=== PATIENT | female | born 1980 | race Caucasian/White ===

== ENCOUNTER 2020-12-24 09:27 | Outpatient (REF) | payer BC, SELFPAY ==
[2020-12-24 11:25] LABS: MANUAL DIFF FLAG NO
[2020-12-24 11:30] LABS: Appearance Urine HAZY; Color Urine YELLOW; Glucose Urine UA NEG (NEG); Leukocyte Esterase Urine NEG (NEG); Nitrite Urine NEG (NEG); PH 6.5 (5.0-8.0); Urine Blood NEG (NEG); Urine Ketones NEG (NEG); Urine Protein TRACE MG/DL (NEG-TRACE)
[2020-12-24 11:37] LABS: Basophils Absolute Auto 0.1 X10*3/uL (0.0-0.2); Basophils Percent Auto 0.5 % (0-2); Eosinophils Absolute Auto 0.2 X10*3/uL (0.0-0.4); Eosinophils Percent Auto 1.6 % (0-4); Hematocrit 42.3 % (37-47); Hemoglobin 14.5 g/dl (12.0-16.0); Imm Gran Abs Auto 0.04 X10*3/uL (0.00-0.03); Imm Gran Pct Auto 0.4 % (0.0-0.4); Lymphocytes Absolute Auto 3.5 X10*3/uL (1.2-4.9); Mean Corpuscular HGB Conc 34.3 g/dl (31.0-35.0); Mean Corpuscular Hemoglobin 29.1 pg (27.0-33.0); Mean Corpuscular Volume 84.9 fL (80-98); Mean Platelet Volume 9.6 fL (9.4-12.3); Monocytes Absolute Auto 0.9 X10*3/uL (0.1-1.2); Monocytes Percent Auto 8.1 % (2-11); Neutrophils Percent Auto 56.4 % (45-73); Platelet Count 349 X10*3/uL (160-400); Red Blood Count 4.98 X10*6/uL (4.20-5.50); Red Cell Distribution Width 13.2 % (11.0-16.0); White Blood Count 10.5 X10*3/uL (4.8-10.8)
[2020-12-24 11:49] LABS: Alanine Aminotransferase 27 U/L (0-31); Albumin Level 4.3 g/dL (3.5-5.0); Alkaline Phosphatase 93 U/L (39-117); Anion Gap 15 (12-20); Aspartate Amino Transferase 31 U/L (5-31); Bilirubin Total 0.7 mg/dL (0.0-1.0); Blood Urea Nitrogen 12 mg/dL (9-16); Calcium 10.3 mg/dL (8.4-10.2); Carbon Dioxide 30 mmol/L (22-29); Chloride 101 mmol/L (96-108); Cholesterol 174 mg/dL; Estimated Glomerular Filt Rate > 60; Glucose Fasting 77 mg/dL (60-99); HDL Cholesterol 33 mg/dL; LDL Cholesterol Calculated 109 mg/dl; Potassium 4.5 mmol/L (3.3-5.1); Sodium 141 mmol/L (135-145); Total Protein 7.6 g/dL (6.5-8.0); Triglycerides 164 mg/dL
[2020-12-24 12:23] LABS: Thyroid Stimulating Hormone 2.62 uIU/mL (0.32-4.0); Vitamin D 25-OH Total 28.9 ng/mL (>30)
== END 2020-12-24 09:28 | disposition home or self-care (01) ==
LOC: HO.HMGCLDS 09:27
PROVIDERS: PCP Internal Medicine; Visit Provider Internal Medicine
DX: I10 Essential (primary) hypertension (principal); E66.01 Morbid (severe) obesity due to excess calories
CPT/HCPCS: 36415; 80053; 80061; 81003; 82306; 84443; 85025

== ENCOUNTER → 2022-01-19 14:30 | Outpatient (BNVA) | payer BC, SELFPAY | PROVIDERS: PCP Internal Medicine; Visit Provider Internal Medicine Cardiovascular Disease | DX: R07.89 Other chest pain (principal); I10 Essential (primary) hypertension; R00.0 Tachycardia, unspecified; E66.01 Morbid (severe) obesity due to excess calories; Z68.42 Body mass index [BMI] 45.0-49.9, adult | CPT/HCPCS: 93005 ==

== ENCOUNTER → 2022-02-17 10:22 | Outpatient (REF) | payer BC, SELFPAY ==
--- NOTE | 2022-02-17 10:25 | CA_ITS ---
Acquisition Time: 2022-02-17 10:36:14 Total Exercise Time: 00:06:30 Test Indications: CP TACHYCARDIA Medications: SEE CHART Protocol: YURIY Max HR: 169 BPM 94% of Pred: 179 BPM Max BP: 142/080 mmHG Max Work Load: 7.7 METS Exercise stress test with exercise 6 min 30 sec of Yuriy protocol, achieving 94% MPHR, 7.7 METs, with mild to moderate shortness of breath, with a mild discomfort between her shoulder blades at baseline which became a little sharper with the exercise, without arrythmia, with normotensive response to exercise, without EKG changes meeting criteria for ischemia. In recovery her breathing normalized and back discomfort went back to baseline. Test reviewed with Dr Alejo Referred By: Jorge Yepez Overread By: BASIA TORREZ
== END ==
LOC: HO.CARD 10:22
PROVIDERS: Visit Provider Internal Medicine Cardiovascular Disease
DX: R07.89 Other chest pain (principal)
CPT/HCPCS: 93017

== ENCOUNTER 2023-10-30 08:42 | Outpatient (REF) | payer BC, SELFPAY ==
--- NOTE | ~2023-10-30 | XR_ITS ---
EXAMINATION: XR HAND, RIGHT XR HAND, LEFT CLINICAL INFORMATION: Bilateral hand pain. COMPARISON: None. TECHNIQUE: PA, oblique, and lateral views of the right and left hand. FINDINGS: Right hand: No fracture or dislocation. Normal carpal alignment. No significant joint space narrowing or marginal osteophytes. No osseous erosion. No periarticular osteopenia. No abnormal soft tissue calcification. Left hand: No fracture or dislocation. Normal carpal alignment. No significant joint space narrowing or marginal osteophytes. No osseous erosion. No periarticular osteopenia. No abnormal soft tissue calcification. XR/XR hand RT min 3V IMPRESSION: RIGHT HAND: Unremarkable examination. LEFT HAND: Unremarkable examination. Electronically signed by: Kuldeep Tracey MD 11/19/2023 08:34 PM EDT
--- NOTE | ~2023-10-30 | XR_ITS ---
EXAMINATION: XR HAND, RIGHT XR HAND, LEFT CLINICAL INFORMATION: Bilateral hand pain. COMPARISON: None. TECHNIQUE: PA, oblique, and lateral views of the right and left hand. FINDINGS: Right hand: No fracture or dislocation. Normal carpal alignment. No significant joint space narrowing or marginal osteophytes. No osseous erosion. No periarticular osteopenia. No abnormal soft tissue calcification. Left hand: No fracture or dislocation. Normal carpal alignment. No significant joint space narrowing or marginal osteophytes. No osseous erosion. No periarticular osteopenia. No abnormal soft tissue calcification. XR/XR hand LT min 3V IMPRESSION: RIGHT HAND: Unremarkable examination. LEFT HAND: Unremarkable examination. Electronically signed by: Kuldeep Tracey MD 11/19/2023 08:34 PM EDT
[2023-10-30 10:24] LABS: MANUAL DIFF FLAG NO
[2023-10-30 10:40] LABS: Basophils Absolute Auto 0.1 X10*3/uL (0.0-0.2); Basophils Percent Auto 0.7 % (0-2); Eosinophils Absolute Auto 0.2 X10*3/uL (0.0-0.4); Eosinophils Percent Auto 2.5 % (0-4); Hematocrit 42.1 % (37.0-47.0); Hemoglobin 14.5 g/dl (12.0-16.0); Imm Gran Abs Auto 0.05 X10*3/uL (0.00-0.03); Imm Gran Pct Auto 0.5 % (0.0-0.4); Lymphocytes Absolute Auto 3.1 X10*3/uL (1.2-4.9); Lymphocytes Percent Auto 33.5 % (20-40); Mean Corpuscular HGB Conc 34.4 g/dl (31.0-35.0); Mean Corpuscular Hemoglobin 29.6 pg (27.0-33.0); Mean Corpuscular Volume 85.9 fL (80.0-98.0); Mean Platelet Volume 9.4 fL (9.4-12.3); Monocytes Absolute Auto 0.5 X10*3/uL (0.1-1.2); Monocytes Percent Auto 5.2 % (2-11); Neutrophils Absolute Auto 5.4 x10*3/uL (2.0-8.3); Neutrophils Percent Auto 57.6 % (45-73); Platelet Count 307 X10*3/uL (160-400); Red Cell Distribution Width 12.9 % (11.0-16.0); White Blood Count 9.4 X10*3/uL (4.8-10.8)
[2023-10-30 11:03] LABS: Rheumatoid Factor < 13.0 IU/mL (<15.0)
[2023-10-30 11:07] LABS: Alanine Aminotransferase 37 U/L (0-31); Albumin Level 4.1 g/dL (3.5-5.0); Alkaline Phosphatase 108 U/L (39-117); Anion Gap 15 (12-20); Aspartate Amino Transferase 61 U/L (5-31); Bilirubin Total 0.9 mg/dL (0.0-1.0); Blood Urea Nitrogen 9 mg/dL (9-16); C Reactive Protein 1.25 mg/dL (< or = 0.50); Calcium 9.6 mg/dL (8.4-10.2); Carbon Dioxide 32 mmol/L (22-29); Chloride 98 mmol/L (96-108); Cholesterol 226 mg/dL (<200); Estimated Glomerular Filt Rate > 60; Glucose Fasting 147 mg/dL (60-99); HDL Cholesterol 35 mg/dL (>40); LDL Cholesterol Calculated 151 mg/dL (<100); Potassium 3.7 mmol/L (3.3-5.1); Sodium 141 mmol/L (135-145); Total Protein 7.7 g/dL (6.5-8.0); Triglycerides 204 mg/dL (<150)
[2023-10-30 11:25] LABS: Thyroid Stimulating Hormone 1.89 uIU/mL (0.32-4.0); Vitamin D 25-OH Total 39.5 ng/mL (>30)
[2023-10-30 11:34] LABS: Erythrocyte Sedimentation Rate 26 MM/HR (0-20)
== END 2023-10-30 08:43 | disposition home or self-care (01) ==
LOC: HO.HMGCX 08:42
PROVIDERS: PCP Internal Medicine; Visit Provider Internal Medicine
DX: M25.541 Pain in joints of right hand (principal); M25.542 Pain in joints of left hand; I10 Essential (primary) hypertension; E66.01 Morbid (severe) obesity due to excess calories; Z00.00 Encounter for general adult medical examination without abnormal findings
CPT/HCPCS: 36415; 73130; 80053; 80061; 82306; 84443; 85025; 85652; 86140; 86431

== ENCOUNTER 2024-01-29 07:38 | Outpatient (REF) | payer BC, SELFPAY ==
[2024-01-29 09:58] LABS: MANUAL DIFF FLAG NO
[2024-01-29 10:05] LABS: Basophils Absolute Auto 0.1 X10*3/uL (0.0-0.2); Basophils Percent Auto 0.6 % (0-2); Eosinophils Absolute Auto 0.3 X10*3/uL (0.0-0.4); Eosinophils Percent Auto 2.6 % (0-4); Hematocrit 40.8 % (37.0-47.0); Hemoglobin 13.9 g/dl (12.0-16.0); Imm Gran Abs Auto 0.05 X10*3/uL (0.00-0.03); Imm Gran Pct Auto 0.5 % (0.0-0.4); Lymphocytes Absolute Auto 3.3 X10*3/uL (1.2-4.9); Lymphocytes Percent Auto 31.4 % (20-40); Mean Corpuscular HGB Conc 34.1 g/dl (31.0-35.0); Mean Corpuscular Hemoglobin 29.1 pg (27.0-33.0); Mean Corpuscular Volume 85.5 fL (80.0-98.0); Mean Platelet Volume 9.6 fL (9.4-12.3); Monocytes Absolute Auto 0.6 X10*3/uL (0.1-1.2); Monocytes Percent Auto 5.4 % (2-11); Neutrophils Absolute Auto 6.3 x10*3/uL (2.0-8.3); Neutrophils Percent Auto 59.5 % (45-73); Platelet Count 297 X10*3/uL (160-400); Red Blood Count 4.77 X10*6/uL (4.20-5.50); Red Cell Distribution Width 12.6 % (11.0-16.0); White Blood Count 10.5 X10*3/uL (4.8-10.8)
[2024-01-29 10:30] LABS: Estimated Average Glucose 146 mg/dL; Hemoglobin A1C 173.7372 umol/L; Hemoglobin A1c % 6.7 % (<6.0)
[2024-01-29 10:32] LABS: Alanine Aminotransferase 47 U/L (0-31); Alkaline Phosphatase 121 U/L (39-117); Anion Gap 15 (12-20); Aspartate Amino Transferase 80 U/L (5-31); Blood Urea Nitrogen 12 mg/dL (9-16); Calcium 9.6 mg/dL (8.4-10.2); Carbon Dioxide 29 mmol/L (22-29); Chloride 96 mmol/L (96-108); Cholesterol 145 mg/dL (<200); Estimated Glomerular Filt Rate > 60; Glucose Fasting 147 mg/dL (60-99); HDL Cholesterol 30 mg/dL (>40); LDL Cholesterol Calculated 79 mg/dL (<100); Potassium 3.3 mmol/L (3.3-5.1); Sodium 137 mmol/L (135-145); Total Protein 7.5 g/dL (6.5-8.0); Triglycerides 183 mg/dL (<150)
[2024-01-29 10:35] LABS: Appearance Urine Cloudy; Color Urine Dark Yellow; Glucose Urine UA Negative (Negative); Leukocyte Esterase Urine Small (1+) (Negative); Nitrite Urine Negative (Negative); PH 8.5 (5.0-9.0); UMIC TRIGGER UA YES; Urine Blood Negative (Negative); Urine Ketones Trace mg/dL (Negative); Urine Protein 30 (1+) mg/dL (Neg-Trace)
[2024-01-29 10:54] LABS: Creatinine Urine 306.36 mg/dL; Microalbum/Creatinine Ratio Ur 29.7 ug/mg cr (<30)
[2024-01-29 10:55] LABS: Bacteria Urine 4+ (None Seen); RBC Urine 0-2 /HPF (0-2); Squamous Epithelial Cell Urine >20 /HPF (0-2)
== END 2024-01-29 07:39 | disposition home or self-care (01) ==
LOC: HO.HMGCLDS 07:38
PROVIDERS: PCP Internal Medicine; Visit Provider Internal Medicine
DX: E78.00 Pure hypercholesterolemia, unspecified (principal); R73.01 Impaired fasting glucose; I10 Essential (primary) hypertension; E66.01 Morbid (severe) obesity due to excess calories
CPT/HCPCS: 36415; 80053; 80061; 81001; 82043; 82570; 83036; 85025

== ENCOUNTER 2024-05-10 10:14 | Outpatient (REF) | payer BC, SELFPAY ==
[2024-05-10 14:08] LABS: Estimated Average Glucose 137 mg/dL; Hemoglobin A1c % 6.4 % (<6.0)
[2024-05-10 14:12] LABS: Alanine Aminotransferase 40 U/L (0-31); Albumin Level 3.9 g/dL (3.5-5.0); Alkaline Phosphatase 120 U/L (39-117); Anion Gap 13 (12-20); Aspartate Amino Transferase 68 U/L (5-31); Blood Urea Nitrogen 11 mg/dL (9-16); Carbon Dioxide 30 mmol/L (22-29); Chloride 101 mmol/L (96-108); Estimated Glomerular Filt Rate > 60; Glucose Fasting 125 mg/dL (60-99); Potassium 3.6 mmol/L (3.3-5.1); Sodium 140 mmol/L (135-145); Total Protein 7.6 g/dL (6.5-8.0)
== END 2024-05-10 10:15 | disposition home or self-care (01) ==
LOC: HO.HMGCLDS 10:14
PROVIDERS: PCP Internal Medicine; Visit Provider Internal Medicine
DX: E11.9 Type 2 diabetes mellitus without complications (principal)
CPT/HCPCS: 36415; 80053; 83036

== ENCOUNTER 2024-05-13 10:58 | Outpatient (AMB) | payer BC, SELFPAY ==
--- NOTE | 2024-05-13 11:05 | A.OFFPC_ITS ---
Vital Signs 05/13/24 11:12 Height 5 ft 6 in Weight 326 lb BMI 52.6 BP 142/90 H Respiration 16 Pulse 96 Pulse Source Pulse Oximeter Pulse Oximetry (%) 98 Oxygen Delivery Method Room Air Intake Visit Reasons: 3 month follow up Equipment Operator Required: No Accompanied by: Self / Same As Patient Allergies No Known Allergies Allergy (Verified 05/13/24 11:16) Tobacco use date assessed: 05/13/24 Dental Screening Dental Screen Date: 05/13/24 Did you have a dental visit in the last 12 months?: No Did you have a dental problem in the last 6 months where you did not have access to dental care?: No PFSH Surgical History Hx of tonsillectomy Family History Mother Osteoporosis Father Lung cancer Paternal Grandfather Esophageal cancer Maternal Grandmother Ovarian cancer Social History Housing: Condominium Alcohol intake: current Alcohol intake frequency: holidays/special occasions only Patient Tobacco Use Status: Never used Tobacco service: No Current occupational status: employed Cognitive needs: No Hearing needs: No Vision needs: Yes (reading glasses) Questionnaire PHQ-9 Over the last 2 weeks, how often have you been bothered by any of the following problems? 1. Little interest or pleasure in doing things: not at all 2. Feeling down, depressed, or hopeless: not at all 3. Trouble falling or staying asleep, or sleeping too much: not at all 4. Feeling tired or having little energy: not at all 5. Poor appetite or overeating: not at all 6. Feeling bad about yourself - or that you are a failure or have let yourself or your family down: not at all 7. Trouble concentrating on things, such as reading the newspaper or watching television: not at all 8. Moving or speaking so slowly that other people could have noticed. Or the opposite - being so fidgety or restless that you have been moving around a lot more than usual: not at all 9. Thoughts that you would be better off or of hurting yourself in some way: not at all Total score: 0 Source: Developed by Drs. Francisco Almaguer, Maldonado Talley and colleagues, with an educational di from [employer]. Thrive Questionnaire Date Thrive assessed: 05/13/24 I am a: Patient What is your living situation today?: I have a steady place to live Within the past 12 months, did the food you bought not last and you didn't have the money to get more?: Never true Within the past 12 months, did you worry whether your food would run out before you got money to buy more?: Never true Do you have trouble paying for medicines?: No Do you have trouble getting transportation to medical appointments?: No Do you have trouble paying your heating and electricity bill?: No Do you have trouble taking care of your child, family member or friend?: No Do you have trouble with day-to-day activities such as bathing, preparing meals, shopping, managing finances, etc.?: No Are you currently unemployed and looking for a job?: No Are you interested in more education?: No THRIVE Score: 0 AUDIT C Alcohol Use Questionnaire (AUDIT-C) 1. How often do you have a drink containing alcohol?: Monthly or less 2. How many drinks containing alcohol do you have on a typical day when you are drinking?: 1 or 2 3. How often do you have six or more drinks on one occasion?: Never Total Score: 1 CLARE-7 AMB Questionnaire CLARE-7 Date CLARE - 7 assessed: 05/13/24 Feeling nervous, anxious, or on edge: 0 = Not at all Not being able to stop or control worryin = Not at all Worrying too much about different things: 0 = Not at all Trouble relaxin = Not at all Being so restless that it is hard to sit still: 0 = Not at all Becoming easily annoyed or irritable: 0 = Not at all Feeling afraid as if something awful might happen: 0 = Not at all Total CLARE-7 score (0-4 normal; 5-9 mild; 10-14 moderate; 15-21 severe): 0 Source: Developed by Kaitlin Chinchilla Kurt Kroenke and colleagues, with an educational di from [employer]. Physical exam (Primary Care) Vital Signs: Last Vital Signs Pulse 96 05/13/24 11:12 Resp 16 05/13/24 11:12 BP 142/90 H 05/13/24 11:12 Pulse Ox 98 05/13/24 11:12 Oxygen Delivery Method Room Air 05/13/24 11:12 BMI result Body Mass Index 52.6 Tobacco/Smoking Status: Tobacco use Status Tobacco use date assessed 05/13/24 05/13/24 11:06 Patient Tobacco Use Status Never used Tobacco 05/13/24 11:06 PHQ-9: PHQ-9 Score PHQ-9: Total score 0 05/13/24 11:20 Thrive Assessment: Date of Thrive Assessment Date Thrive assessed 05/13/24 05/13/24 11:06 Coding Level of Care Code New Pt Level 4 (04040) Complex EM visit Add On G2211 Diagnoses Hyperglycemia R73.9 Assessment & Plan Assessment & Plan (1) Hyperglycemia: Code(s): R73.9 - Hyperglycemia, unspecified Plan: History of Present Illness The patient is a 43-year-old female presenting with left shoulder pain. The pain began three months ago following an overhead reaching incident and has persisted since. She notes pain with specific movements such as placing the left arm behind her back and elevating the arm overhead. Despite some improvement, these activities continue to be painful. The patient also mentions a rib contusion incident from a fall in late March, where she initially experienced significant twinging pain that has since resolved. No medical attention was sought for this condition. She has a history of Type 2 Diabetes Mellitus with an A1c of 6.7% and metabolic syndrome, which has led to elevated liver function tests. The patient has inconsistencies with evening diabetic medication compliance and has not routinely monitored her blood glucose levels. Social History - Employment: Works at [employer] in the [email or web address] department. - Housing: Lives alone, purchased a house in the area. - Transportation: Lacks a car; relies on walking and public transit. - Exercise: Walks to work three days a week, one mile each way, and uses crampons in winter. - Nutrition: Meets regularly with a asphalt spreader; aware of the importance of diet in diabetes management. Review of Systems - Musculoskeletal: Reports left shoulder pain, twinging rib pain now resolved. Physical Exam General: Appearance normal, both eyes and all related structures Nutritional Appearance: Well nourished Orientation/consciousness: Patient oriented x3 Limitations: Left arm pain when moved behind the back Head: Normal to inspection Neck: Normal visual inspection Chest: Tenderness noted on left side due to previous rib injury Respiratory: Normal respiratory effort Neurology: Patient oriented x3 Results - Labs: A1c of 6.7% - Tests and diagnostics: Liver function tests elevated due to suspected fatty liver associated with metabolic syndrome. Plan The patient's left shoulder pain is possibly due to a muscle sprain. I recommend continued rest and monitoring for improvement. No immediate intervention is required for the resolved rib contusion. The current diabetes management appears effective, though I encourage consistency in medication adherence and will arrange thyroid function testing soon. I advised periodic fasting blood sugar checks and continued collaboration with a asphalt spreader to address fatty liver changes related to metabolic syndrome. For preventive care, I advised the patient to schedule a mammogram and [employer] exam, considering her transportation constraints. Patient was informed and verbally consented to the use of an ambient scribe for clinic note documentation during this visit. Discussion Notes During the conversation, I explained the likely cause of the left shoulder pain as a muscle strain, noting the expected self-limiting nature of the condition. We discussed her rib injury, which is now resolved. In terms of diabetes tuan holt, given her A1c of 6.7%, I encouraged continuing her current regimen with better evening compliance and introduced periodic blood glucose monitoring as a beneficial adjunct. The elevated liver function tests are likely due to non-alcoholic fatty liver disease within the context of metabolic syndrome, and I recommend continued dietary management with her asphalt spreader. We discussed her pending reproductive healthcare appointments, acknowledging transportation as a logistical challenge, and emphasized planning for necessary preventive screenings. Patient Instructions - Rest and monitor left shoulder, avoiding painful movements. - Ensure consistent medication regimen for diabetes management. - Schedule and complete thyroid function test. - Establish consistent blood sugar monitoring routine. - Continue working with a asphalt spreader for dietary improvement. - Plan ahead for transportation to attend preventive health screenings. - Arrange for periodic reproductive healthcare and mammograms. Orders: Orders Lipid Panel Today E66.01 - Morbid (severe) obesity due to excess calories Complete Blood Count no Diff Today E66.01 - Morbid (severe) obesity due to excess calories
[2024-05-13 11:12] VITALS: BP 142/90; PULSE 96; RESP 16; O2SAT 98; BMI 52.6
== END 2024-05-13 11:42 | disposition home or self-care (01) ==
LOC: HO.HMCSH 10:58
PROVIDERS: PCP Internal Medicine; Visit Provider Internal Medicine
DX: R73.9 Hyperglycemia, unspecified (principal)